=== PATIENT | female | born 1960 | race Caucasian/White ===

== ENCOUNTER 2021-04-17 08:06 | Day surgery (SDC) | payer BC, OTHER ==
[2021-04-17] MEDS ORDERED: Propofol 200 MG/20 ML SDV IV ONE (08:07)
[2021-04-17] MEDS ORDERED: Sodium Chloride 0.9% 10 ML Syringe FLUSH PRN (08:15)
[2021-04-17] MEDS ORDERED: Lactated Ringers 1,000 ML IV SCH (08:15)
--- NOTE | 2021-04-17 09:43 | PCM.PN ---
- General Info Date of Service: 04/17/21 - Review of Systems General: Reports: No Symptoms Pulmonary: Reports: No Symptoms. Denies: Shortness of Breath Cardiovascular: Reports: No Symptoms. Denies: Chest Pain Gastrointestinal: Reports: No Symptoms, Other (Bowels working well) - Patient Data Vitals - Most Recent: Last Vital Signs Temp 97.9 F 04/17/21 08:36 Pulse 69 04/17/21 08:36 Resp 15 04/17/21 08:36 BP 174/81 H 04/17/21 08:36 Pulse Ox 96 04/17/21 08:36 Weight - Most Recent: 270 lb 4.587 oz Med Orders - Current: Current Medications Lactated Ringer's (Ringers, Lactated) 1,000 mls @ 125 mls/hr IV ASDIRECTED FILEMON Last Admin: 04/17/21 08:51 Dose: 125 mls/hr Documented by: Sodium Chloride (Sodium Chloride 0.9% 10 Ml Syringe) 10 ml FLUSH ASDIRECTED PRN PRN Reason: Keep Vein Open - Exam General: Alert, Oriented Lungs: Clear to Auscultation, Normal Respiratory Effort Cardiovascular: Regular Rate, Regular Rhythm GI/Abdominal Exam: Soft, Non-Tender Sepsis Event Note - Focused Exam Vital Signs: Vital Signs Temp Pulse Resp BP Pulse Ox 04/17/21 08:36 97.9 F 69 15 174/81 H 96 - Problem List Review Problem List Initiated/Reviewed/Updated: Yes - My Orders Last 24 Hours: My Active Orders 04/17/21 00:00 Patient Status [ADT] Routine 04/17/21 Breakfast Nothing Per Oral Diet [DIET] 04/17/21 08:15 Patient to Empty Bladder [RC] ASDIRECTED Verify Patient Consent Obtain [RC] ASDIRECTED Lactated Ringers [Ringers, Lactated] 1,000 ml IV ASDIRECTED Sodium Chloride 0.9% [Saline Flush] 10 ml FLUSH ASDIRECTED PRN Peripheral IV Insertion Adult [OM.PC] Routine - Assessment Assessment:: Colon Cancer Screening - Plan Plan:: Colonoscopy
--- NOTE | 2021-04-17 10:28 | PCM.OPNOTE ---
- General Post-Op/Procedure Note Date of Surgery/Procedure: 04/17/21 Operative Procedure(s): Colonoscopy Findings: Normal appearing colon Pre Op Diagnosis: colon cancer screening Post-Op Diagnosis: normal colon Anesthesia Technique: MAC Primary Surgeon: Danilo Mauricio Pathology: none EBL in mLs: 0 Complications: None Condition: Good
[2021-04-17 11:25] VITALS: BP 125/66; PULSE 59
--- NOTE | 2021-04-17 12:24 | OR ---
DATE OF OPERATION: 04/17/2021 SURGEON: Danilo Mauircio MD PREOPERATIVE DIAGNOSIS: Colon cancer screening. POSTOPERATIVE DIAGNOSIS: Normal colon. OPERATION PERFORMED: Colonoscopy. INDICATIONS FOR SURGERY: This 60-year-old female presents today for screening colonoscopy. Her last colon exam was approximately 10 years ago, and she denies any recent change in bowel pattern. FINDINGS: The patient's rectum and colon appear normal. No polyps or other abnormalities were seen. PROCEDURE: The patient was taken to the procedure room. She was given intravenous sedation and with her in the left lateral decubitus position, digital rectal exam was performed showing no rectal masses. The Olympus colonoscope was inserted into the rectum where retroflexed examination of the rectal canal was performed. The scope was then carefully advanced under direct visualization through the entire length of the colon until the cecum was reached. Cecal acquisition was confirmed by noting the normal internal cecal anatomy including the appendiceal orifice and the ileocecal valve. After examining the cecum, the scope was slowly withdrawn sequentially re-examining the colonic segments until the entire colon and rectum had been fully examined. The scope was removed and the patient was taken from the procedure room in satisfactory condition. ESTIMATED BLOOD LOSS: Zero. COMPLICATIONS: None. PROGNOSIS: Good. /[id number] FRANCIS/BEE
== END 2021-04-17 11:19 | disposition home or self-care (01) ==
LOC: FB.SDS 08:06
PROVIDERS: ATTEND Surgery
DX: Z12.11 Encounter for screening for malignant neoplasm of colon (principal); G47.33 Obstructive sleep apnea (adult) (pediatric); I10 Essential (primary) hypertension; E66.1 Drug-induced obesity; Z68.41 Body mass index [BMI] 40.0-44.9, adult; Z87.891 Personal history of nicotine dependence; Z91.09 Other allergy status, other than to drugs and biological substances; Z90.49 Acquired absence of other specified parts of digestive tract; Z98.890 Other specified postprocedural states
CPT/HCPCS: 00812; 45378; J2704; J7120